=== PATIENT | male | born 1980 | race African-American/Black ===

== ENCOUNTER 2020-08-27 12:56 | Emergency (ER) | payer BC, OTHER ==
[~2020-08-27] VITALS: Ht 172.7 cm; Wt 63.5 kg
[~2020-08-27 12:56] MED LIST: BACTRIM DS TAB1 EACH PO; CEFDINIR PO; CLARITIN10 MG PO; IBUPROFEN 600600 M1 PO; NOHOMEMEDICATIONS; NORCO 5-325 TA1 EACH PO; OMNARIS NS
[2020-08-27 15:36] LABS: HEMATOCRIT 41.6 % (42.0-52.0); HEMOGLOBIN 13.4 gm/dL (14.0-18.0); MCH 29.5 pg (26.0-34.0); MCHC 32.2 g/dL (28.0-37.0); MCV 91.5 fL (80.0-100.0); RBC 4.55 mil/uL (4.50-6.00); RDW 13.4 % (10.5-14.5); WBC 5.6 thou/uL (4.0-11.0)
--- NOTE | 2020-08-27 15:36 | EKG ---
[facility] [place] [address] ELECTROCARDIOGRAM REPORT Name: KASSANDRA FLORESER WILL Room #: REG [facility]#: [id number] Admission: 08/27/20 Attend Phys: Discharge: Date of : 84 Report #: [id number] [facility] ED Test Date: 2020-08-27 Test Time: 15:16:39 Pat Name: TING FLORES Department: Room: Gender: Post Acute Care Nurse: RICH : 1980 Requested By: Bryant Pizarro Order Number: [id number] MD: Kye Parker Measurements Intervals [place] Rate: 62 P: 55 PA: 152 QRS: 37 QRSD: 80 T: 59 QT: 377 QTc: 383 Interpretive Statements Sinus rhythm RSR' in V1 or V2, probably normal variant ST elev, probable normal early repol pattern No previous ECG available for comparison Electronically Signed On 08-27-2020 15:35:43 [employer] by Kye Parker [email or web address] <ELECTRONICALLY SIGNED> By: Kye Parker MD, [facility] 08/27/20 1535 1516 1516 Kye Parker MD, FACC /EPI
[2020-08-27 15:53] LABS: CALCIUM 8.8 mg/dL (8.5-10.1); POTASSIUM 4.1 mmol/L (3.5-5.1)
[2020-08-27] MEDS ORDERED: CYCLOBENZAPRINE5 MG PO ×2 (17:02→17:10)
[2020-08-27] MEDS ORDERED: NORCO5 PO ×2 (17:02→17:10)
[2020-08-27 17:49] VITALS: BP 122/85
== END 2020-08-27 17:15 | disposition home or self-care (01) ==
LOC: ER 12:56
PROVIDERS: Physician Assistant
DX: M54.10 Radiculopathy, site unspecified (principal); M25.511 Pain in right shoulder